=== PATIENT | female | born 1995 | race Caucasian/White ===

== ENCOUNTER 2021-08-30 16:57 | Outpatient (CLI) | payer OTHER ==
[2021-08-30] MEDS ORDERED: PRENATAL TABLE1 EAC1 (17:27)
== END 2021-08-31 19:35 | disposition home or self-care (01) ==
LOC: OBS/DEL 16:57
PROVIDERS: ATTEND Obstetrics & Gynecology
DX: O26.842 Uterine size-date discrepancy, second trimester (principal); O26.892 Other specified pregnancy related conditions, second trimester; R10.2 Pelvic and perineal pain; O60.02 Preterm labor without delivery, second trimester; Z3A.23 23 weeks gestation of pregnancy

== ENCOUNTER 2021-09-07 15:14 | Outpatient (CLI) | payer OTHER ==
[~2021-09-07 15:14] MED LIST: PRENATAL TABLE1 EAC1
== END 2021-09-07 16:27 | disposition home or self-care (01) ==
LOC: PRENATAL 15:14
PROVIDERS: ATTEND Obstetrics & Gynecology Maternal & Fetal Medicine
DX: O35.0XX1 Maternal care for (suspected) central nervous system malformation in fetus, fetus 1 (principal); O35.3XX1 Maternal care for (suspected) damage to fetus from viral disease in mother, fetus 1; O98.512 Other viral diseases complicating pregnancy, second trimester; Z36.89 Encounter for other specified antenatal screening; Z3A.24 24 weeks gestation of pregnancy